=== PATIENT | male | born 1955 | race African-American/Black ===

== ENCOUNTER → 2016-12-15 | Outpatient (CLI) | payer BC ==
--- NOTE | ~2016-12-15 | ECHO ---
Transthoracic Echocardiography Report (TTE) Demographics Patient Name ORLANDO DUNCAN Date of Study 12/15/2016 A Patient Number [id number] Visit Number [id number] Date of 1955 Room Number Gender Male Number Age 61 year(s) Referring Vandana Garcia MD Signal Fitter Ethel Scanlon RVT Physician Rachel Adame Physician Interpreting Rachel Adame Human Services Worker Physician Supervising Ordering Rachel Adame MD/MLP Physician Nurse Stress Punch Box Tender Conclusions Contractility Score Summary Normal Left Ventricular contractility was noted. Summary The estimated left ventricular ejection fraction is 50-55%. Diastolic assessment reveals Grade I diastolic dysfunction. Mildly dilated right ventricle. The right atrium is mildly dilated. Trivial mitral regurgitation by color Doppler. The aortic valve is mildly sclerotic. Procedure Type of Study TTE procedure:2D Echocardiogram. Procedure Date Date: 12/15/2016 Start: 12:59 PM Study Location: Echo Lab Technical Quality: Adequate visualization Indications:Chest pain. Appropriate Use Criteria: 9 Patient Status: Routine HR: 57 bpm BP: 165/94 mmHg M-Mode/2D Measurements LV Diastolic Dimension: 4.8 cm LV Systolic Dimension: 3.22 cm LV Septum Diastolic: 1.03 cm LV PW Diastolic: 1.08 cm AO Root Dimension: 2.3 cm Cardiac Output: 2.56 l/min AV Cusp Separation: 2.2 cm RV Diastolic Dimension: 3.2 cm LA Dimension: 3.2 cm LVOT: 2 cm RV Base: 3.08 cm LVOT VTI: 14.3 cm RV Mid: 3.68 cm LV Stroke volume: 44.9 ml RV Length: 7.58 cm TAPSE: 1.57 cm TDI-S': 12 cm/s Doppler Measurements AV Peak Velocity: 1.32 m/s MV Peak E-Wave: 0.66 m/s AV Peak Gradient: 6.97 mmHg MV Peak A-Wave: 0.52 m/s AV Mean Gradient: 4 mmHg MV E/A Ratio: 1.26 LVOT Peak Velocity: 0.69 m/s MV P1/2t: 72 msec TR Gradient:4.93 mmHg PV Peak Velocity: 0.74 m/s PV Peak Gradient: 2.21 mmHg E' Septal Velocity: 0.06 m/s A' Septal Velocity: 0.08 m/s E' Lateral Velocity: 0.08 m/s A' Lateral Velocity: 0.11 m/s Findings Left Ventricle Diastolic assessment reveals Grade I diastolic dysfunction. Right Ventricle Mildly dilated right ventricle. Left Atrium Normal left atrial size. Right Atrium The right atrium is mildly dilated. IVC measures 1.33 cm with partial inspiratory collapse. Mitral Valve Trivial mitral regurgitation by color Doppler. Aortic Valve The aortic valve is mildly sclerotic. Tricuspid Valve No tricuspid regurgitation by color Doppler. Pericardial Effusion No evidence of pericardial effusion. Miscellaneous Visualized portions of the aortic root and ascending aorta appear normal in size. Pleural Effusion No evidence of pleural effusion. Contractility Score LV regional wall motion:(0-Non visualized 1-Normal 2-Hypokinesis 3-Akinesis 4-Dyskinesis 5-Aneurysm) Signature dtt: GOMEZ HILL dtd: 12/15/16 1259 Physician Self Edit
--- NOTE | ~2016-12-15 | ENPV ---
Carotid Duplex Study Demographics Patient Name ORLANDO DUNCAN Date of Study 12/15/2016 A Patient Number [id number] Gender Male Date of 1955 Age 61 Visit Number [id number] Height Accession Number [id number] Weight Room Number BSA BMI Referring Vandana Garcia MD Interpreting [facility] Physician [facility] Physician Deep Adame Physician Ordering [facility] Technology Intern Physician Deep Other Sports Coach Or Instructor Ethel Scanlon T Conclusions Summary The right internal carotid artery has mild, 1-39%, plaque and stenosis. The right vertebral artery is present with antegrade flow. The left internal carotid artery has mild, 1-39%, plaque and stenosis. The left vertebral artery is present with antegrade flow. Procedure Type of Study: Cerebral:Carotid, Carotid Doppler Bilateral. Indications for Study:Dizziness and Near Syncope. Appropriate Use Criteria:9 Patient Status:Routine. Study Location:Vascular Lab. Technical Quality:Adequate visualization. Velocities are measured in cm/s ; Diameters are measured in cm Carotid Right Measurements Carotid Left Measurements + +--------+--------+ + + + +--------+ --------+ + + !Location !PSV !EDV !Angle !%Stenosis ! !Location !PSV ! EDV !Angle !%Stenosis ! + +--------+--------+ + + + +--------+ --------+ + + !Prox CCA !60 !17 !60 ! ! !Prox CCA !92 ! 31 !54 ! ! + +--------+--------+ + + + +--------+ --------+ + + !Dist CCA !55 !18 !60 ! ! !Dist CCA !65 ! 21 !54 ! ! + +--------+--------+ + + + +--------+ --------+ + + !Prox ICA !33 !13 !52 ! ! !Prox ICA !33 ! 17 !54 ! ! + +--------+--------+ + + + +--------+ --------+ + + !Mid ICA !65 !34 !52 ! ! !Mid ICA !56 ! 27 !38 ! ! + +--------+--------+ + + + +--------+ --------+ + + !Dist ICA !55 !29 !40 ! ! !Dist ICA !58 ! 28 !38 ! ! + +--------+--------+ + + + +--------+ --------+ + + !Prox ECA !52 ! !60 ! ! !Prox ECA !61 ! !54 ! ! + +--------+--------+ + + + +--------+ --------+ + + !Vertebral !42 ! !42 ! ! !Vertebral !34 ! !40 ! ! + +--------+--------+ + + + +--------+ --------+ + + !Subclavian !61 ! ! ! ! !Subclavian !83 ! ! ! ! + +--------+--------+ + + + +--------+ --------+ + + - There is antegrade vertebral flow noted on the right side. - There is antegrade verte bral flow noted on the left side. - Add'l Measurements:ICAPSV/CCAPSV 1.07.ICAEDV/CCAEDV 1.96. - Add'l Measurements:ICAPS V/CCAPSV 0.63.ICAEDV/CCAEDV 0.91. Signature dtt: DEEP HILL dtd: 12/15/16 1242 Physician Self Edit
== END | disposition disaster alternative care site (69) ==
LOC: GCAR 12:25
DX: R07.9 Chest pain, unspecified (principal); I51.89 Other ill-defined heart diseases; R42 Dizziness and giddiness; R55 Syncope and collapse; Z82.49 Family history of ischemic heart disease and other diseases of the circulatory system; Z83.49 Family history of other endocrine, nutritional and metabolic diseases